=== PATIENT | male | born 1990 | race Two or more races ===

== ENCOUNTER 2019-07-21 22:55 | Emergency (ER) | payer SELFPAY ==
[~2019-07-21] VITALS: Ht 182.9 cm; Wt 104.0 kg
[2019-07-21] MEDS ORDERED: diphenhdrAMINE HCL 50 MG/1 ML VL IM ONE (23:30)
[2019-07-22 01:19] VITALS: BP 115/59
== END 2019-07-22 02:09 | disposition left against medical advice (07) ==
LOC: ER 22:55
DX: T78.40XA Allergy, unspecified, initial encounter (principal); Z53.29 Procedure and treatment not carried out because of patient's decision for other reasons; X58.XXXA Exposure to other specified factors, initial encounter
CPT/HCPCS: 96372; 99283; J1200